=== PATIENT | male | born 1970 | race Caucasian/White ===

== ENCOUNTER → 2016-11-27 | Outpatient (REF) | payer OTHER ==
[2016-11-28 14:12] LABS: Lyme Disease IgG/IgM Antibodie <0.91 ISR (0.00-0.90); Lyme Disease IgM Ab Quantitati <0.80 index (0.00-0.79)
== END ==
LOC: M SFHCPLAZ 10:39
PROVIDERS: ATTEND Family Medicine
DX: M79.606 Pain in leg, unspecified (principal)

== ENCOUNTER → 2017-06-08 | Outpatient (REF) | payer OTHER | LOC: M SFHCPLAZ 09:00 | PROVIDERS: ATTEND Family Medicine | DX: Z13.220 Encounter for screening for lipoid disorders (principal); Z13.1 Encounter for screening for diabetes mellitus ==

== ENCOUNTER 2017-09-26 17:44 | Emergency (ER) | payer OTHER ==
[2017-09-26] MEDS: NAPROXEN 250 MG TAB PO (18:45)
== END 2017-09-26 20:21 | disposition home or self-care (01) ==
LOC: M ED 17:44
DX: S16.1XXA Strain of muscle, fascia and tendon at neck level, initial encounter (principal); S56.312A Strain of extensor or abductor muscles, fascia and tendons of left thumb at forearm level, initial encounter; S00.83XA Contusion of other part of head, initial encounter; J34.1 Cyst and mucocele of nose and nasal sinus; Y35.91XA Legal intervention, means unspecified, law enforcement official injured, initial encounter; Y92.149 Unspecified place in prison as the place of occurrence of the external cause; Y93.9 Activity, unspecified; Y99.0 Civilian activity done for income or pay; I10 Essential (primary) hypertension; Z79.82 Long term (current) use of aspirin; Z79.899 Other long term (current) drug therapy; Z88.1 Allergy status to other antibiotic agents
CPT/HCPCS: 70486

== ENCOUNTER → 2018-06-10 | Outpatient (REF) | payer OTHER | LOC: M SFHCPLAZ 16:31 | DX: Z12.5 Encounter for screening for malignant neoplasm of prostate (principal); Z53.8 Procedure and treatment not carried out for other reasons ==

== ENCOUNTER → 2020-11-20 | Outpatient (REF) | payer OTHER ==
[~2020-11-20] MED LIST: CONT1TAB PO; GOOD81CH2 PO; IBUP-1114 PO; LOSA50TA88 PO; NAPR-837 PO; ROBA500T PO; SILD100T PO
[2020-11-21 23:41] LABS: PSA TOTAL 15.7 ng/mL (0.0-4.0)
== END ==
LOC: M SFHCPLAZ 09:11
PROVIDERS: ATTEND Family Medicine
DX: R97.20 Elevated prostate specific antigen [PSA] (principal)

== ENCOUNTER → 2020-12-03 | Outpatient (REF) | payer OTHER ==
[2020-12-03 14:26] LABS: APPEARANCE, URINE CLEAR (CLEAR); BACTERIA, URINE AUTO NEGATIVE (NEGATIVE); BILIRUBIN, URINE AUTO NEGATIVE (NEGATIVE); BLOOD, URINE BLOOD NEGATIVE (NEGATIVE); COLOR, URINE STRAW (YELLOW); GLUCOSE, URINE (UA) AUTO NEGATIVE (NEGATIVE); KETONE, URINE AUTO NEGATIVE (NEGATIVE); LEUKOCYTE ESTERASE, URINE AUTO NEGATIVE (NEGATIVE); NITRITE, URINE AUTO NEGATIVE (NEGATIVE); PROTEIN, URINE AUTO NEGATIVE (NEGATIVE); RBC, URINE AUTO 1 /HPF (0-3); SPECIFIC GRAVITY URINE AUTO 1.006 (1.002-1.035); SQUAMOUS EPITHELIAL CELL UR AU 0 /HPF (0-6); UROBILINOGEN, URINE AUTO 0.2 mg/dL (0.0-2.0); WBC, URINE AUTO 0 /HPF (0-3)
== END ==
LOC: M SMT 13:48
PROVIDERS: ATTEND Nurse Practitioner Women's Health
DX: R97.20 Elevated prostate specific antigen [PSA] (principal)

== ENCOUNTER → 2020-12-18 | Outpatient (CLI) | payer BC, OTHER ==
--- NOTE | 2020-12-18 16:52 | REPPI ---
INDICATION: ELEVATED PSA. COMPARISON: None. TECHNIQUE: Transrectal prostate ultrasound performed, with ultrasound guidance provided for Dr. Tidwell who performed ultrasound-guided biopsy. FINDINGS: Prostate measures 3.8 x 3.2 x 4.5 cm, total volume 28.0 mL. Echotexture is heterogeneous with scattered tiny cysts and calcifications. A nodule in the anterior lateral mid aspect of the prostate measures 6 x 7 mm. Seminal vesicles are symmetrical. IMPRESSION: Prostate ultrasound as above, ultrasound guidance was provided for Dr. Morales who performed ultrasound-guided biopsy of the prostate. <Electronically signed by Terence Merchant > 12/18/20 [id number]
== END ==
LOC: M SMT PRO 14:40
PROVIDERS: ATTEND Nurse Practitioner Women's Health
DX: C61 Malignant neoplasm of prostate (principal)
CPT/HCPCS: 76872; 76942; G0416

== ENCOUNTER → 2020-12-30 | Outpatient (CLI) | payer BC, OTHER ==
[2020-12-30 14:15] LABS: BLOOD UREA NITROGEN 15 MG/DL (7-18); CALCIUM LEVEL 8.9 MG/DL (8.5-10.1); CARBON DIOXIDE LEVEL 26 MEQ/L (21-32); CHLORIDE LEVEL 106 MEQ/L (98-107); CREATININE FOR GFR 0.96 MG/DL (0.70-1.30); GLOMERULAR FILTRATION RATE > 60.0 (>56); GLUCOSE, FASTING 100 MG/DL (70-100); POTASSIUM SERUM 4.2 MEQ/L (3.5-5.1); SODIUM LEVEL 139 MEQ/L (136-145)
== END ==
LOC: M PLALAB 11:25
PROVIDERS: ATTEND Urology
DX: C61 Malignant neoplasm of prostate (principal)

== ENCOUNTER → 2021-02-03 | Outpatient (CLI) | payer BC, OTHER ==
[~2021-02-03] MED LIST changes: +PROHANCE 279.3MG/ML 15ML VIAL As Ordered ONE; +PROHANCE 279.3MG/ML 5ML VIAL As Ordered ONE
--- NOTE | 2021-02-03 17:33 | REP ---
INDICATION: PROSTATE CANCER. COMPARISON: None. TECHNIQUE: Multiple sequences obtained in the axial, coronal and sagittal planes prior to and following the intravenous administration of 20 cc ProHance. FINDINGS: The osseous structures of the pelvis demonstrate normal bone marrow signal. There is no bone marrow edema or occult fracture. No bone lesion is seen. There is no abnormal bone marrow enhancement. There is no evidence of lymphadenopathy in the pelvis. Multiple diverticula are seen of the sigmoid colon. No definite mass is seen of the urinary bladder, which is [id number] distended with fluid. Seminal vesicles are symmetrical and fluid-filled. Prostate margins are unremarkable with no definite Periprostatic abnormality. The pelvic musculature and superficial soft tissues are unremarkable. IMPRESSION: Sigmoid diverticulosis. No extraprostatic mass or adenopathy. No free fluid. No bone lesion. <Electronically signed by Terence Merchant > 02/03/21 [id number]
--- NOTE | 2021-02-03 20:03 | REP ---
INDICATION: PREOP TESTING COMPARISON: 11/11/2008. TECHNIQUE: PA/Lateral FINDINGS: Lungs: Clear, no infiltrate. Heart: Normal in size. Mediastinum: Mediastinal silhouette unremarkable. Pleural angles: Unremarkable.. Bones and soft tissues: Unremarkable. IMPRESSION: No acute pulmonary disease. <Electronically signed by Terence Merchant > 02/03/211999
== END ==
LOC: M RAD 15:24
PROVIDERS: ATTEND Urology
DX: Z01.818 Encounter for other preprocedural examination (principal); C61 Malignant neoplasm of prostate; K57.30 Diverticulosis of large intestine without perforation or abscess without bleeding
CPT/HCPCS: 71046; 72197; A9576

== ENCOUNTER → 2021-02-16 | Outpatient (CLI) | payer BC, OTHER ==
[~2021-02-16] MED LIST changes: -PROHANCE 279.3MG/ML 15ML VIAL As Ordered ONE; -PROHANCE 279.3MG/ML 5ML VIAL As Ordered ONE
[2021-02-16 11:41] LABS: HEMATOCRIT 43.8 % (42.0-52.0); HEMOGLOBIN 14.8 g/dl (13.5-17.5); MEAN CORPUSCULAR HGB CONC 33.8 g/dl (32.0-36.5); MEAN CORPUSCULAR VOLUME 91.8 fl (80.0-96.0); PLATELET COUNT, AUTOMATED 231 10^3/uL (150-450); RED BLOOD COUNT 4.77 10^6/uL (4.30-6.10); WHITE BLOOD COUNT 7.9 10^3/uL (4.0-10.0)
[2021-02-16 11:56] LABS: PROTHROMBIN TIME 13.6 SECONDS (12.7-14.5)
[2021-02-16 11:57] LABS: PARTIAL THROMBOPLASTIN TIME 30.7 SECONDS (25.9-37.0)
[2021-02-16 12:04] LABS: BLOOD UREA NITROGEN 10 MG/DL (7-18); CALCIUM LEVEL 8.3 MG/DL (8.5-10.1); CARBON DIOXIDE LEVEL 29 MEQ/L (21-32); CHLORIDE LEVEL 109 MEQ/L (98-107); CREATININE FOR GFR 0.91 MG/DL (0.70-1.30); GLOMERULAR FILTRATION RATE > 60.0 (>56); GLUCOSE, FASTING 101 MG/DL (70-100); POTASSIUM SERUM 4.2 MEQ/L (3.5-5.1); SODIUM LEVEL 142 MEQ/L (136-145)
== END ==
LOC: M LAB 11:13
PROVIDERS: ATTEND Urology
DX: Z01.818 Encounter for other preprocedural examination (principal); C61 Malignant neoplasm of prostate; N39.0 Urinary tract infection, site not specified

== ENCOUNTER → 2021-02-20 | Outpatient (CLI) | payer BC, OTHER ==
[~2021-02-20] MED LIST changes: +CETI10CH PO
== END ==
LOC: M LABSMTC 11:11
PROVIDERS: ATTEND Anesthesiology
DX: Z20.828 Contact with and (suspected) exposure to other viral communicable diseases (principal); Z11.59 Encounter for screening for other viral diseases

== ENCOUNTER 2021-02-25 06:12 | Inpatient (IN) | payer BC, OTHER ==
[~2021-02-25] VITALS: Ht 188 cm; Wt 125.2 kg
[~2021-02-25 06:12] MED LIST changes: +LIDOCAINE 1% MDV 20ML VIAL SQ PRN; +LR 1,000 ML IV ONE
[2021-02-25] MEDS ORDERED: HEPARIN SOD (PORCINE) 5000UNITS/ML 1ML VIAL/SYRINGE SQ ONE (07:00)
[2021-02-25] MEDS ORDERED: fentaNYL 100 MCG/2 ML INJECTION (J3010) As Ordered ONE ×3 (07:02→13:33)
[2021-02-25] MEDS ORDERED: MIDAZOLAM INJ 2MG/2ML VIAL (J2250 PER 1MG) As Ordered ONE (07:02)
[2021-02-25] MEDS ORDERED: BUPIVACAINE HCL 0.25% 30ML VIAL As Ordered ONE (07:08)
[2021-02-25] MEDS ORDERED: LIDOCAINE 1% SDV 30ML VIAL As Ordered ONE (07:08)
[2021-02-25] MEDS ORDERED: LACRILUBE (AKWA TEARS) OPHTH OINT 3.5 GM As Ordered ONE (07:14)
[2021-02-25] MEDS ORDERED: propofoL 200 MG/20 ML VIAL As Ordered ONE ×2 (07:17→12:25)
[2021-02-25] MEDS ORDERED: ROCURONIUM BROMIDE 50 MG/5 ML VIAL As Ordered ONE ×5 (07:18→14:38)
[2021-02-25] MEDS ORDERED: dexameTHASONE 4 MG/ML 1ML VIAL (J1100 PER 1MG) As Ordered ONE (07:18)
[2021-02-25] MEDS ORDERED: LIDOCAINE 2% 100MG/5ML SDV (FOR ANES.) As Ordered ONE ×3 (07:18→12:14)
[2021-02-25] MEDS ORDERED: ONDANSETRON 4MG/2ML VIAL As Ordered ONE (07:18)
[2021-02-25] MEDS ORDERED: ONDANSETRON 4MG/2ML VIAL IV PRN ×3 (07:20→14:20)
[2021-02-25] MEDS ORDERED: ACETAMINOPHEN TAB 650MG DOSE (2X325MG) PO PRN (07:20)
[2021-02-25] MEDS ORDERED: MORPHINE 2 MG/ML 1ML VIAL (J2270) IV PRN (07:20)
[2021-02-25] MEDS ORDERED: ceFAZolin SOD 1 GM in D5W MINI-BAG PLUS 50 ML IV ONE (07:30)
[2021-02-25] MEDS ORDERED: ceFAZolin SOD 2 GM in IV 1 EA IV ONE (07:30)
[2021-02-25] MEDS ORDERED: HEPARIN SOD (PORCINE) 5000UNITS/ML 1ML VIAL/SYRINGE As Ordered ONE (08:22)
[2021-02-25] MEDS ORDERED: ePHEDrine SULFATE 25 MG/5 ML(5MG/ML) SYRINGE As Ordered ONE (10:26)
[2021-02-25] MEDS ORDERED: PHENYLephrine 500MCG 5ML (100MCG/ML) SYRINGE As Ordered ONE (11:46)
[2021-02-25] MEDS ORDERED: SUGAMMADEX SODIUM 500 MG/5 ML VIAL (BRIDION) As Ordered ONE (12:26)
[2021-02-25] MEDS ORDERED: KETOROLAC 60MG 2ML VIAL As Ordered ONE (12:28)
[2021-02-25] MEDS ORDERED: ACETAMINOPHEN 1000MG 100ML IV BTL (OFIRMEV) (J0131 PER 10MG) As Ordered ONE (12:29)
[2021-02-25] MEDS ORDERED: LR 1,000 ML IV SCH ×2 (13:40→14:20)
[2021-02-25] MEDS ORDERED: fentaNYL 100 MCG/2 ML INJECTION (J3010) IV PRN ×2 (13:40→14:20)
[2021-02-25] MEDS ORDERED: oxyCODONE 5MG TAB PO PRN ×2 (13:40→14:20)
[2021-02-25 13:45] LABS: HEMATOCRIT 40.1 % (42.0-52.0); HEMOGLOBIN 13.8 g/dl (13.5-17.5); MEAN CORPUSCULAR HEMOGLOBIN 31.3 pg (27.0-33.0); MEAN CORPUSCULAR HGB CONC 34.4 g/dl (32.0-36.5); MEAN CORPUSCULAR VOLUME 90.9 fl (80.0-96.0); PLATELET COUNT, AUTOMATED 233 10^3/uL (150-450); RED BLOOD COUNT 4.41 10^6/uL (4.30-6.10); WHITE BLOOD COUNT 8.5 10^3/uL (4.0-10.0)
--- NOTE | 2021-02-25 13:48 | ROOPDOC ---
[facility] Report Of Operation Report of Operation DATE OF PROCEDURE: 02/25/21 PREPROCEDURE DIAGNOSIS: Prostate cancer. POSTPROCEDURE DIAGNOSIS: Prostate cancer. PROCEDURE: Robotic-assisted laparoscopic radical prostatectomy with bilateral pelvic lymph node dissection. SURGEON: Nathan Pierre MD SAFETY TECH: Geraldine Catherine NP ANESTHESIA: General. OPERATIVE INDICATIONS: This is a 50 year old male with high risk clinical T1c Jose 4+4 prostate cancer. After a discussion of the options for treatment, he elected to undergo the above procedure. DESCRIPTION OF PROCEDURE: The patient was brought to the operating room and general anesthesia was induced. Prophylactic antibiotics were infused. He was then placed in the dorsal lithotomy position and prepped and draped in the usual sterile fashion. At this point, a Wells catheter was inserted into the bladder and the balloon was filled with 10 mL of sterile water. We then made a midline incision just above the umbilicus for an 8 mm port. A Veress needle was utilized to achieve pneumoperitoneum. Next, an 8 mm port was inserted into the incision and subsequently a camera was inserted. There were no injuries from the Veress needle or initial trocar placement. At this point, we placed the remaining ports, including a 12 mm tiler's assistant port and then three robotic ports in the usual configuration. Once all the ports were placed, the robot was docked. Lysis of adhesions between the sigmoid colon and abdominal wall was then performed. The bladder was then released from the anterior abdominal wall using electrocautery. Once the bladder was dropped, the fat overlying the prostate was cleared using electrocautery. The superficial dorsal vein was controlled with electrocautery. The endopelvic fascia was opened on both sides and the dorsal venous complex was cleared. Next, a #0 Vicryl ryiwlm-su-hyoeh stitch was placed around the dorsal venous complex. Once that was done, the bladder was opened and dissected away from the prostate. While dissecting the bladder away from the prostate a small inadvertent button hole was made on the posterior aspect of the bladder on the right. This was closed with a running #2-0 Vicryl suture. The right ureteral orifice was identified before and after this was done to ensure that it was not caught in the closure. At this point, the prostate was lifted up. The vasa deferentia were identified in the midline. They were then ligated and transected. The seminal vesicles were also dissected off bilaterally. The rectum was safely mobilized away from the prostate. While dissecting the rectum off the prostate posteriorly the tissue did seem more indurated than normal. Bilateral prostatic pedicles were taken using the Harmonic scalpel. The pedicles were carried towards the apex. After taking care of the pedicles and mobilizing the rectum off the prostate below, the prostate was only connected by the urethra. At this point, the dorsal venous complex was transected with electrocautery. The urethra was then opened and the catheter was withdrawn and the posterior urethra was transected, thus freeing the prostate. At this point, we checked for hemostasis and it did appear very good. Next, we performed bilateral pelvic lymph node dissection. This was done in a standard fashion. The limits of dissection were the iliac vein proximally, the obturator nerve distally, the pelvic sidewall laterally, and the bladder medially. All lymphatic tissue within these limits was removed. I performed the same procedure on both the right and left sides. Hemostasis was then obtained with bipolar electrocautery. The lymphatic packets were then placed in separate Endo Catch bags for future retrieval. Once hemostasis was confirmed, I then moved on to perform the vesicourethral anastomosis. This was performed with a Quill stitch in a running fashion. Once this was done, the final #20-[place] Wells catheter was placed. The balloon was filled with 15 mL of sterile water. Upon completion of the vesicourethral anas tomosis, it was tested by filling the bladder with sterile saline water. The anastomosis appeared to be watertight. At this point, the prostate and seminal vesicles were placed in an Endo Catch bag for future retrieval. Next, a Everardo- Wolf drain was brought in through the left robotic port skin site and the drain was positioned anterior to the bladder. The robot was then undocked. A Ramesh fascial closure device was utilized to place a #0 Vicryl suture between the fascia of the 12 mm tiler's assistant port. The drain was secured to the skin with #2-0 Ethilon suture. The prostate, as well as the lymphatic packets were then extracted from the camera port site after the skin was extended. The fascia in this incision was then closed with a running #0 Vicryl stitch. I then looked back in the abdomen and no intraabdominal contents were caught in the extraction site fascial closure. Next, all the remaining ports were removed and there did not appear to be any bleeding from any of the port sites. The previously placed #0 Vicryl free ties through the tiler's assistant port were then tied down and all incisions were irrigated. All of the incisions were then closed with running subcuticular #4-0 Monocryl sutures. Local anesthesia was applied. Dermabond was then applied to the incisions. This marked the conclusion of the procedure. The patient was then taken out of the dorsal lithotomy position, awakened from anesthesia and transported to the recovery room in stable condition. ESTIMATED BLOOD LOSS: 100 mL. COMPLICATIONS: None. SPECIMENS: Prostate and seminal vesicles, right pelvic lymph nodes, left pelvic lymph nodes. PLAN: The patient will be admitted to the hospital postoperatively, and he will likely be discharged home within the next 1-2 days. NATHAN PIERRE MD Feb 25, 2021 07:33
[2021-02-25] MEDS: HYDROMORPHONE HCL 0.5 MG/ 0.5 ML SYRINGE (J1170 PER 1) IV PRN ×2 (13:56→14:12)
[2021-02-25 14:12] LABS: CALCIUM LEVEL 8.6 MG/DL (8.5-10.1); CREATININE FOR GFR 1.59 MG/DL (0.70-1.30); GLOMERULAR FILTRATION RATE 48.9 (>56); POTASSIUM SERUM 4.6 MEQ/L (3.5-5.1)
[2021-02-25] MEDS ORDERED: HYDROMORPHONE HCL 0.5 MG/ 0.5 ML SYRINGE (J1170 PER 1) IV PRN (14:20)
[2021-02-25 15:06] VITALS: BP 99/57
[2021-02-25 15:36] VITALS: BP 98/57
[2021-02-25] MEDS: ceFAZolin SOD 1 GM in D5W MINI-BAG PLUS 50 ML IV SCH ×2 (15:42→23:17)
[2021-02-25] MEDS: NS 1,000 ML IV SCH (15:43)
[2021-02-25] MEDS: PERCOCET 5MG/325MG TAB PO PRN ×2 (15:48→21:49)
[2021-02-25 16:06] VITALS: BP 98/60
[2021-02-25 17:06] VITALS: BP 99/59
[2021-02-25 18:00] VITALS: BP 98/60
[2021-02-25] MEDS: DOCUSATE SODIUM 100MG CAPSULE PO SCH (21:47)
[2021-02-25] MEDS: HEPARIN SOD (PORCINE) 5000UNITS/ML 1ML VIAL/SYRINGE SC SCH (21:51)
[2021-02-25 22:00] VITALS: BP 108/62
[2021-02-26] MEDS ORDERED: UNRESOLVED CLARIFICATION ENTRY XX SCH (00:01)
[2021-02-26] MEDS: NS 1,000 ML IV SCH (02:06)
[2021-02-26] MEDS: PERCOCET 5MG/325MG TAB PO PRN ×4 (02:06→17:39)
[2021-02-26 03:03] VITALS: BP 112/62
[2021-02-26 05:00] VITALS: BP 112/62
[2021-02-26] MEDS: HEPARIN SOD (PORCINE) 5000UNITS/ML 1ML VIAL/SYRINGE SC SCH ×2 (05:37→14:00)
[2021-02-26 06:40] LABS: HEMATOCRIT 35.8 % (42.0-52.0); HEMOGLOBIN 12.3 g/dl (13.5-17.5); MEAN CORPUSCULAR HEMOGLOBIN 31.6 pg (27.0-33.0); MEAN CORPUSCULAR HGB CONC 34.4 g/dl (32.0-36.5); PLATELET COUNT, AUTOMATED 214 10^3/uL (150-450); RED BLOOD COUNT 3.89 10^6/uL (4.30-6.10); WHITE BLOOD COUNT 8.3 10^3/uL (4.0-10.0)
[2021-02-26 07:11] LABS: BLOOD UREA NITROGEN 16 MG/DL (7-18); CARBON DIOXIDE LEVEL 25 MEQ/L (21-32); CHLORIDE LEVEL 111 MEQ/L (98-107); CREATININE FOR GFR 0.92 MG/DL (0.70-1.30); GLOMERULAR FILTRATION RATE > 60.0 (>56); GLUCOSE, FASTING 124 MG/DL (70-100); SODIUM LEVEL 140 MEQ/L (136-145)
[2021-02-26] MEDS: DOCUSATE SODIUM 100MG CAPSULE PO SCH (08:17)
[2021-02-26] MEDS ORDERED: LOSARTAN 50MG TABLET PO SCH (09:00)
[2021-02-26 10:00] VITALS: BP 110/65
--- NOTE | 2021-02-26 12:57 | IPNPDOC ---
Subjective Review oF Systems Chief Complaint The patient is a 50-year-old male admitted with a reason for visit of Prostate Cancer. Events since Last Encounter No acute events o/n. Had a little difficulty w/ pain control o/n. No n/v. Has not ambulated yet. No f/c/ns. Objective Physical Examination General Exam: Alert, Cooperative, No Acute Distress ABDOMEN EXAM: Soft, Tenderness (mild), Other (incisions clean/dry/intact; VERA w/ serous output) Skin Exam: Nl turgor and temperature Neuro Exam: Normal Speech Psych Exam: Mental status NL, Mood NL Other physical findings catheter draining clear yellow urine Vital Signs/I&O Vital Signs Date Time Temp Pulse Resp B/P (MAP) Pulse Ox O2 Delivery O2 Flow Rate FiO2 02/26/21 08:21 79 18 127/57 96 Room Air 02/26/21 05:00 98.6 1.0 I&O- Last 24 Hours up to 6 AM 02/26/21 05:58 Intake Total 2330 ml Output Total 1840 ml Balance 490 ml Laboratory Data Labs 24H Laboratory Tests 2 02/25/21 13:23: Nucleated Red Blood Cells % (auto) 0.0, Anion Gap 9, Glomerular Filtration Rate 48.9L, Calcium Level 8.6 02/26/21 06:17: Nucleated Red Blood Cells % (auto) 0.0, Anion Gap 4L, Glomerular Filtration Rate > 60.0, Calcium Level 8.0L CBC/BMP Laboratory Tests 02/25/21 13:23 02/26/21 06:17 Assessment/Plan Date Seen The patient was seen on 02/26/21. Patient Summary This is a 50 y/o M POD1 s/p RALP w/ BPLND. Other than issues w/ pain control, he is doing well. Hb stable at 12.3. Cr 0.9. Good UOP. Normal VERA output. Plan/VTE VTE Prophylaxis Ordered?: Yes VTE Exclusion Mechanical Proph: N/A:VTE Prophy Ordered VTE Exclusion Pharmacological: N/A:VTE Prophy Ordered Plan/Urinary Catheter Urinary Catheter: Other Catheter: (catheter will need to stay in for at least 7 days for healing of the vesicourethral anastomosis) Plan - d/c IVF - percocet prn pain - strict I/Os - ambulate - incentive spirometry - SQH - SCDs in bed - advance diet as tolerated - possible discharge home later today w/ catheter if pain is better controlled and no difficulty ambulating NATHAN PIERRE MD Feb 26, 2021 09:29
[2021-02-26] MEDS ORDERED: COLA100C5 PO (14:49)
[2021-02-26] MEDS ORDERED: PERCOCET PO (14:49)
[2021-02-26] MEDS ORDERED: CIPR-249 PO (14:49)
--- NOTE | 2021-02-27 15:08 | DSES ---
DISCHARGE SUMMARY DATE OF ADMISSION: 02/25/2021 DATE OF DISCHARGE: 02/26/2021 ADMITTING DIAGNOSIS: Prostate cancer. DISCHARGE DIAGNOSIS: Prostate cancer. ADMITTING PHYSICIAN: Chito Tidwell MD. DISCHARGE PHYSICIAN: Chito Tidwell MD. PROCEDURES PERFORMED: Robotic assisted laparoscopic radical prostatectomy with bilateral pelvic lymph node dissection on February 25, 2021. HISTORY OF PRESENT ILLNESS: This is a 50-year-old male with high risk prostate cancer who underwent the above elected procedure for treatment. He was admitted to the hospital post-operatively. HOSPITAL COURSE: The patient was admitted to the hospital after undergoing surgery on February 25, 2021. His post-operative course was unremarkable. On the morning of post-operative day 1 he did note having some weakness and difficulty with pain control. Throughout the day he started ambulating and his pain control was better controlled with oral pain medication. His labs during his hospital stay were within normal limits. Specifically his hemoglobin level remained stable at 12.3 on post-operative day 1. His serum creatinine normalized at 0.9 on post-operative day 1. He had excellent urine output during his hospital stay. Output from his Everardo-Wolf drain was within normal limits. His diet was advanced and he tolerated a regular diet. By the afternoon of post-operative day 1 he was doing well and deemed ready for discharge home. His Everardo-Wolf drain was removed. He was discharged home with his catheter in place with the plan for him to follow up in the urology clinic in approximately 1 week for catheter removal and to discuss pathology results.
== END 2021-02-26 19:23 | disposition home or self-care (01) | DRG 480 ==
LOC: M OR 06:12 → M MSPAV 15:04
PROVIDERS: ADMIT Urology; ATTEND Urology
PROC: 8E0W4CZ Robotic Assisted Procedure of Trunk Region, Percutaneous Endoscopic Approach (ICD-10-PCS; 2021-02-25)
PROC: 07TC4ZZ Resection of Pelvis Lymphatic, Percutaneous Endoscopic Approach (ICD-10-PCS; 2021-02-25)
PROC: 0VT04ZZ Resection of Prostate, Percutaneous Endoscopic Approach (ICD-10-PCS; principal; 2021-02-25 07:30)
DX: C61 Malignant neoplasm of prostate (principal); Z79.899 Other long term (current) drug therapy; I10 Essential (primary) hypertension; N52.9 Male erectile dysfunction, unspecified; E66.9 Obesity, unspecified; Z68.35 Body mass index [BMI] 35.0-35.9, adult; Z88.1 Allergy status to other antibiotic agents

== ENCOUNTER → 2021-04-01 | Outpatient (CLI) | payer BC, OTHER ==
[~2021-04-01] MED LIST changes: +CIPR-249 PO; +COLA100C5 PO; -LIDOCAINE 1% MDV 20ML VIAL SQ PRN; -LR 1,000 ML IV ONE; +PERCOCET PO
== END ==
LOC: M PLALAB 10:10
PROVIDERS: ATTEND Urology
DX: C61 Malignant neoplasm of prostate (principal)

== ENCOUNTER → 2021-04-21 | Outpatient (CLI) | payer BC, OTHER | LOC: M PLALAB 08:41 | PROVIDERS: ATTEND Urology | DX: C61 Malignant neoplasm of prostate (principal) ==

== ENCOUNTER → 2021-06-18 | Outpatient (REF) | payer OTHER | LOC: M SFHCADAM 08:02 | PROVIDERS: ATTEND Urology | DX: C61 Malignant neoplasm of prostate (principal) ==

== ENCOUNTER → 2021-07-22 | Outpatient (CLI) | payer BC, OTHER ==
[~2021-07-22] MED LIST changes: +LOSA50TA28 PO; -LOSA50TA88 PO; +NOXI1TAB PO; +VITA500C24 PO
== END ==
LOC: M ONCR 12:54
PROVIDERS: ATTEND General Practice
DX: C61 Malignant neoplasm of prostate (principal); I10 Essential (primary) hypertension; Z88.1 Allergy status to other antibiotic agents; Z79.899 Other long term (current) drug therapy

== ENCOUNTER → 2021-10-23 | Outpatient (CLI) | payer BC, OTHER ==
[2021-10-23 13:06] LABS: BASO % 0.8 % (0.0-1.0); EOS # 0.2 10^3/uL (0.0-0.5); EOS % 3.3 % (0.0-3.0); HEMATOCRIT 41.5 % (42.0-52.0); HEMOGLOBIN 14.2 g/dl (13.5-17.5); LYMPH # 1.3 10^3/uL (1.5-5.0); LYMPH % 26.2 % (24.0-44.0); MEAN CORPUSCULAR HGB CONC 34.2 g/dl (32.0-36.5); MEAN CORPUSCULAR VOLUME 90.6 fl (80.0-96.0); MONO # 0.4 10^3/uL (0.0-0.8); MONO % 8.9 % (2.0-8.0); NEUTROPHILS # 2.9 10^3/uL (1.5-8.5); NEUTROPHILS % 60.6 % (36.0-66.0); PLATELET COUNT, AUTOMATED 289 10^3/uL (150-450); RED BLOOD COUNT 4.58 10^6/uL (4.30-6.10); WHITE BLOOD COUNT 4.9 10^3/uL (4.0-10.0)
[2021-10-23 13:31] LABS: ALBUMIN 4.3 GM/DL (3.2-5.2); ALT/SGPT 68 U/L (12-78); BILIRUBIN,TOTAL 0.4 MG/DL (0.2-1.0); BLOOD UREA NITROGEN 14 MG/DL (7-18); CALCIUM LEVEL 9.9 MG/DL (8.5-10.1); CARBON DIOXIDE LEVEL 29 MEQ/L (21-32); CHLORIDE LEVEL 106 MEQ/L (98-107); CREATININE FOR GFR 0.76 MG/DL (0.70-1.30); GLOMERULAR FILTRATION RATE > 60.0 (>56); GLUCOSE, FASTING 90 MG/DL (70-100); POTASSIUM SERUM 5.2 MEQ/L (3.5-5.1); SODIUM LEVEL 141 MEQ/L (136-145); TOTAL PROTEIN 7.6 GM/DL (6.4-8.2); URIC ACID 6.4 MG/DL (3.5-7.2)
== END ==
LOC: M PLALAB 11:56
PROVIDERS: ATTEND Physician Assistant
DX: M79.671 Pain in right foot (principal)

== ENCOUNTER 2021-10-31 09:30 | Outpatient (RCR) | payer BC, OTHER | END 2021-11-01 | LOC: M ONCR 09:30 | PROVIDERS: ATTEND General Practice | DX: C61 Malignant neoplasm of prostate (principal) ==

== ENCOUNTER → 2021-11-03 | Outpatient (CLI) | payer BC, OTHER | LOC: M WHC 07:04 | PROVIDERS: ATTEND Physician Assistant | DX: M79.671 Pain in right foot (principal) ==

== ENCOUNTER → 2021-12-02 | Outpatient (RCR) | payer BC, OTHER | LOC: M ONCR 11-03 09:23 | PROVIDERS: ATTEND General Practice | DX: C61 Malignant neoplasm of prostate (principal) ==

== ENCOUNTER 2021-12-15 09:30 | Outpatient (RCR) | payer BC, OTHER | END 2022-01-01 | LOC: M ONCR 09:30 | PROVIDERS: ATTEND General Practice | DX: C61 Malignant neoplasm of prostate (principal) ==

== ENCOUNTER → 2022-02-11 | Outpatient (CLI) | payer BC, OTHER ==
[2022-02-11 13:32] LABS: PROSTATIC SPECIFIC AG MONITOR < 0.01 NG/ML (< 4.00)
[2022-02-11 14:17] LABS: TESTOSTERONE 13 NG/DL (241-827)
== END ==
LOC: M LAB 11:23
PROVIDERS: ATTEND General Practice
DX: C61 Malignant neoplasm of prostate (principal)

== ENCOUNTER → 2022-02-20 | Outpatient (CLI) | payer BC, OTHER | LOC: M ONCR 08:15 | PROVIDERS: ATTEND General Practice | DX: C61 Malignant neoplasm of prostate (principal); N39.3 Stress incontinence (female) (male); Z92.3 Personal history of irradiation; Z88.1 Allergy status to other antibiotic agents ==

== ENCOUNTER → 2022-07-10 | Outpatient (CLI) | payer BC, OTHER ==
[~2022-07-10] MED LIST changes: -GOOD81CH2 PO; +RA A81CH3 PO
[2022-07-10 17:28] LABS: PROSTATIC SPECIFIC AG MONITOR 0.04 NG/ML (< 4.00)
== END ==
LOC: M WUC 13:55
PROVIDERS: ATTEND General Practice
DX: C61 Malignant neoplasm of prostate (principal)

== ENCOUNTER → 2022-07-15 | Outpatient (CLI) | payer BC, OTHER ==
[2022-07-15 12:51] LABS: HEMATOCRIT 41.7 % (42.0-52.0); HEMOGLOBIN 13.9 g/dl (13.5-17.5); MEAN CORPUSCULAR HEMOGLOBIN 30.3 pg (27.0-33.0); MEAN CORPUSCULAR HGB CONC 33.3 g/dl (32.0-36.5); MEAN CORPUSCULAR VOLUME 90.8 fl (80.0-96.0); PLATELET COUNT, AUTOMATED 201 10^3/uL (150-450); RED BLOOD COUNT 4.59 10^6/uL (4.30-6.10); WHITE BLOOD COUNT 3.1 10^3/uL (4.0-10.0)
[2022-07-15 13:25] LABS: ALBUMIN 4.1 G/DL (3.2-5.2); ALKALINE PHOSPHATASE 107 U/L (46-116); ALT/SGPT 57 U/L (7.0-40); AST/SGOT 27 U/L (<34); BILIRUBIN,TOTAL 0.3 MG/DL (0.3-1.2); BLOOD UREA NITROGEN 19 MG/DL (9-23); CALCIUM LEVEL 9.4 MG/DL (8.5-10.1); CARBON DIOXIDE LEVEL 29 MMOL/L (20-31); CHLORIDE LEVEL 105 MMOL/L (98-107); CHOLESTEROL LEVEL 176 MG/DL (<200); CHOLESTEROL RISK RATIO 4.66 (<5); CREATININE FOR GFR 0.84 MG/DL (0.70-1.30); GLOMERULAR FILTRATION RATE > 60.0 (>56); GLUCOSE, FASTING 111 MG/DL (60-100); HDL CHOLESTEROL 37.7 MG/DL (>40); LDL CHOLESTEROL 102.3 MG/DL (<100); NON-HDL-C 138 MG/DL; POTASSIUM SERUM 4.1 MMOL/L (3.5-5.1); SODIUM LEVEL 141 MMOL/L (136-145); TOTAL PROTEIN 6.8 G/DL (5.7-8.2); TRIGLYCERIDES LEVEL 180 MG/DL (<150)
[2022-07-15 13:26] LABS: FREE T4 1.04 NG/DL (0.89-1.76); THYROID STIMULATING HORMONE 1.947 uIU/ML (0.55-4.78)
== END ==
LOC: M WUC 10:00
PROVIDERS: ATTEND Student in an Organized Health Care Education/Training Program
DX: E66.9 Obesity, unspecified (principal); I10 Essential (primary) hypertension; Z68.41 Body mass index [BMI] 40.0-44.9, adult

== ENCOUNTER → 2022-11-20 | Outpatient (CLI) | payer BC, OTHER ==
[2022-11-20 13:09] LABS: PROSTATIC SPECIFIC AG MONITOR 0.04 NG/ML (< 4.00)
== END ==
LOC: M WUC 09:54
PROVIDERS: ATTEND Urology
DX: C61 Malignant neoplasm of prostate (principal)

== ENCOUNTER → 2022-11-24 | Outpatient (CLI) | payer BC, OTHER | LOC: M ONCR 09:14 | PROVIDERS: ATTEND General Practice | DX: C61 Malignant neoplasm of prostate (principal); Z71.2 Person consulting for explanation of examination or test findings; Z79.899 Other long term (current) drug therapy; Z88.1 Allergy status to other antibiotic agents; Z92.29 Personal history of other drug therapy; Z92.3 Personal history of irradiation ==

== ENCOUNTER → 2023-02-22 | Outpatient (CLI) | payer BC, OTHER ==
[~2023-02-22] MED LIST changes: +ASPI-663 PO; -RA A81CH3 PO; +trimix PO
== END ==
LOC: M CARPUL 09:16
PROVIDERS: ATTEND Student in an Organized Health Care Education/Training Program
DX: Z87.898 Personal history of other specified conditions (principal)

== ENCOUNTER 2023-03-11 11:14 | Day surgery (SDC) | payer BC, OTHER ==
[~2023-03-11] VITALS: Ht 188 cm; Wt 126.7 kg
[~2023-03-11 11:14] MED LIST changes: +NS 1,000 ML IV ONE
[2023-03-11 12:34] VITALS: TEMP 97.4
[2023-03-11 12:46] VITALS: BP 129/57; O2SAT 96
== END 2023-03-11 12:52 | disposition home or self-care (01) ==
LOC: M OPP 11:14
PROVIDERS: ATTEND Surgery
DX: Z12.11 Encounter for screening for malignant neoplasm of colon (principal); K63.5 Polyp of colon; K57.30 Diverticulosis of large intestine without perforation or abscess without bleeding; I45.10 Unspecified right bundle-branch block; I10 Essential (primary) hypertension; K21.9 Gastro-esophageal reflux disease without esophagitis; G43.909 Migraine, unspecified, not intractable, without status migrainosus; Z85.46 Personal history of malignant neoplasm of prostate; Z92.3 Personal history of irradiation; Z87.891 Personal history of nicotine dependence; Z88.1 Allergy status to other antibiotic agents; Z79.899 Other long term (current) drug therapy

== ENCOUNTER → 2023-04-16 | Outpatient (REF) | payer BC, OTHER ==
[~2023-04-16] MED LIST changes: -NS 1,000 ML IV ONE
== END ==
LOC: M SFHCPLAZ 19:06
PROVIDERS: ATTEND Urology
DX: C61 Malignant neoplasm of prostate (principal)

== ENCOUNTER → 2023-06-21 | Outpatient (REF) | payer BC, OTHER ==
[2023-06-21 18:02] LABS: APPEARANCE, URINE CLEAR (CLEAR); BACTERIA, URINE AUTO NEGATIVE (NEGATIVE); BILIRUBIN, URINE AUTO NEGATIVE (NEGATIVE); BLOOD, URINE BLOOD NEGATIVE (NEGATIVE); COLOR, URINE YELLOW (YELLOW); GLUCOSE, URINE (UA) AUTO NEGATIVE (NEGATIVE); KETONE, URINE AUTO NEGATIVE (NEGATIVE); LEUKOCYTE ESTERASE, URINE AUTO NEGATIVE (NEGATIVE); NITRITE, URINE AUTO NEGATIVE (NEGATIVE); PROTEIN, URINE AUTO NEGATIVE (NEGATIVE); RBC, URINE AUTO 2 /HPF (0-3); SPECIFIC GRAVITY URINE AUTO 1.017 (1.002-1.035); SQUAMOUS EPITHELIAL CELL UR AU 0 /HPF (0-6); UROBILINOGEN, URINE AUTO 0.2 mg/dL (0.0-2.0); WBC, URINE AUTO 0 /HPF (0-3)
== END ==
LOC: M SMT 16:50
PROVIDERS: ATTEND Urology
DX: R31.0 Gross hematuria (principal)

== ENCOUNTER → 2023-11-22 | Outpatient (REF) | payer BC, OTHER | LOC: M LABWUC 16:39 | PROVIDERS: ATTEND Urology | DX: C61 Malignant neoplasm of prostate (principal) ==

== ENCOUNTER → 2024-02-24 | Outpatient (REF) | payer BC | LOC: M SFHCADAM 09:07 | PROVIDERS: ATTEND Urology | DX: C61 Malignant neoplasm of prostate (principal) ==

== ENCOUNTER → 2024-02-25 | Outpatient (CLI) | payer BC | LOC: M ONCR 08:56 | PROVIDERS: ATTEND General Practice | DX: C61 Malignant neoplasm of prostate (principal); R97.21 Rising PSA following treatment for malignant neoplasm of prostate; Z79.899 Other long term (current) drug therapy; Z88.1 Allergy status to other antibiotic agents; Z90.79 Acquired absence of other genital organ(s); Z92.29 Personal history of other drug therapy; Z92.3 Personal history of irradiation ==

== ENCOUNTER → 2024-03-31 | Outpatient (CLI) | payer BC | LOC: M ONCR 08:53 | PROVIDERS: ATTEND General Practice | DX: C61 Malignant neoplasm of prostate (principal); R97.21 Rising PSA following treatment for malignant neoplasm of prostate; M89.9 Disorder of bone, unspecified; Z79.899 Other long term (current) drug therapy; Z88.1 Allergy status to other antibiotic agents; Z90.79 Acquired absence of other genital organ(s); Z92.3 Personal history of irradiation; Z92.29 Personal history of other drug therapy ==

== ENCOUNTER → 2024-07-31 | Outpatient (REF) | payer BC | LOC: M LABDRWAD 17:09 | PROVIDERS: ATTEND General Practice | DX: C61 Malignant neoplasm of prostate (principal) ==

== ENCOUNTER → 2024-09-19 | Outpatient (CLI) | payer BC | LOC: M ONCR 08:48 | PROVIDERS: ATTEND General Practice | DX: C61 Malignant neoplasm of prostate (principal); C79.51 Secondary malignant neoplasm of bone; R97.21 Rising PSA following treatment for malignant neoplasm of prostate; Z90.79 Acquired absence of other genital organ(s); Z79.899 Other long term (current) drug therapy; Z92.29 Personal history of other drug therapy; Z92.3 Personal history of irradiation; Z88.1 Allergy status to other antibiotic agents ==

== ENCOUNTER → 2024-10-02 | Outpatient (RCR) | payer BC | LOC: M ONCR 09-21 07:55 | PROVIDERS: ATTEND General Practice | DX: Z51.0 Encounter for antineoplastic radiation therapy (principal); C79.51 Secondary malignant neoplasm of bone ==

== ENCOUNTER 2024-10-06 13:45 | Outpatient (RCR) | payer BC | END 2024-11-01 | LOC: M ONCR 13:45 | PROVIDERS: ATTEND General Practice | DX: Z51.0 Encounter for antineoplastic radiation therapy (principal); C79.51 Secondary malignant neoplasm of bone ==

== ENCOUNTER → 2025-01-04 | Outpatient (CLI) | payer BC | LOC: M ONCR 09:20 | PROVIDERS: ATTEND General Practice | DX: C61 Malignant neoplasm of prostate (principal); C79.51 Secondary malignant neoplasm of bone; R97.21 Rising PSA following treatment for malignant neoplasm of prostate; Z79.899 Other long term (current) drug therapy; Z92.29 Personal history of other drug therapy; Z90.79 Acquired absence of other genital organ(s); Z81.2 Family history of tobacco abuse and dependence; Z88.1 Allergy status to other antibiotic agents ==

== ENCOUNTER → 2025-02-26 | Outpatient (REF) | payer OTHER ==
[2025-02-26 17:49] LABS: PROSTATIC SPECIFIC AG MONITOR 2.99 NG/ML (< 4.00)
[2025-02-26 17:53] LABS: TESTOSTERONE 271.0 NG/DL (241-827)
== END ==
LOC: M LABDRWAD 16:57
PROVIDERS: ATTEND General Practice
DX: Z08 Encounter for follow-up examination after completed treatment for malignant neoplasm (principal); Z85.46 Personal history of malignant neoplasm of prostate

== ENCOUNTER → 2025-03-01 | Outpatient (CLI) | payer BC | LOC: M ONCR 09:00 | PROVIDERS: ATTEND General Practice | DX: C61 Malignant neoplasm of prostate (principal); R97.21 Rising PSA following treatment for malignant neoplasm of prostate; Z90.79 Acquired absence of other genital organ(s); Z92.3 Personal history of irradiation; Z88.1 Allergy status to other antibiotic agents; Z79.899 Other long term (current) drug therapy; Z92.29 Personal history of other drug therapy ==

== ENCOUNTER → 2025-04-19 | Outpatient (REF) | payer BC ==
[2025-04-19 14:49] LABS: ALT/SGPT 40 U/L (7.0-40); AST/SGOT 21 U/L (<34); CALCIUM LEVEL 8.8 MG/DL (8.5-10.1); CARBON DIOXIDE LEVEL 28 MMOL/L (20-31); CHLORIDE LEVEL 107 MMOL/L (98-107); CREATININE FOR GFR 0.79 MG/DL (0.70-1.30); GLOMERULAR FILTRATION RATE > 90.0 (>56); POTASSIUM SERUM 4.8 MMOL/L (3.5-5.1); SODIUM LEVEL 145 MMOL/L (136-145)
[2025-04-19 14:51] LABS: PLATELET COUNT, AUTOMATED 197 10^3/uL (150-450)
[2025-04-19 14:52] LABS: FREE T4 1.02 NG/DL (0.89-1.76)
[2025-04-19 14:58] LABS: ESTIMATED AVERAGE GLUCOSE 105.0 MG/DL (60-110)
== END ==
LOC: M SFHCPLAZ 09:35
PROVIDERS: ATTEND Nurse Practitioner Adult Health
DX: R00.2 Palpitations (principal); I10 Essential (primary) hypertension; Z83.3 Family history of diabetes mellitus